=== PATIENT | male | born 1990 | race Caucasian/White ===

== ENCOUNTER 2025-03-29 07:57 | Day surgery (SDC) | payer OTHER ==
[~2025-03-29] VITALS: Ht 180.3 cm; Wt 101.3 kg
[2025-03-29] MEDS ORDERED: Prozac40 MG (08:12)
[2025-03-29] MEDS ORDERED: Midazolam HCL 1 MG/ML 5MLVIAL ONE (10:18)
[2025-03-29 10:54] VITALS: BP 128/93
== END 2025-03-29 11:15 | disposition home or self-care (01) ==
LOC: ORSCSDS 07:57
PROVIDERS: Internal Medicine Gastroenterology
PROC: 0DB58ZX Excision of Esophagus, Via Natural or Artificial Opening Endoscopic, Diagnostic (ICD-10-PCS; principal; 2025-03-29 09:30)
PROC: 0D758ZZ Dilation of Esophagus, Via Natural or Artificial Opening Endoscopic (ICD-10-PCS; principal; 2025-03-29 09:30)
DX: R13.10 Dysphagia, unspecified (principal); K20.0 Eosinophilic esophagitis
CPT/HCPCS: 88305; 88312; J2250; J2704; J7120